=== PATIENT | male | born 1960 | race Caucasian/White ===

== ENCOUNTER 2024-04-14 09:42 | Outpatient (REF) | payer BC, SELFPAY ==
--- OUTSIDE RECORDS SUMMARY | 2024-04-14 10:13 | XMS_ITS | Encounter Summary ---
Author Organization [facility] [place] Address [address] [place] [address] Care Team Providers Care Senior Reservations Agent Name Role Phone Gera Castillo MD Primary Care Provider Reason for Visit * Reason Onset Date Comments medication question 04/12/2024 Medication Problem 04/12/2024 Encounter Details Date Type Department Care Team ([facility] Contact Info) Description 04/12/2024 Telephone Adult Medicine [facility] [address] [place] [address] Gera Castillo MD [address], [place] [phone] medication question; Medication Problem Social History Tobacco Use Types Packs/Day Years Used Date Smoking Tobacco: Never Smokeless Tobacco: Never Alcohol Use Standard Drinks/Week Comments Not Currently 0 (1 standard drink = 0.6 oz pur e alcohol) Housing Instability Answer Date Recorde d Are you worried that in the next 2 months you may not have stable housing? No 02/10/2024 Food Access & Nutrition Answer Date Rec orded Do you have access to a vari ety of food including fruits and vegetables? Yes 02/10/2024 Access to Healthcare Answer Date Record ed Within the last 3 months, ho w many times did you visit the emergency department for your medical care? 1 02/10/2024 Health Literacy Answer Date Recorded How often do you need to hav e someone help you when you read instructions, pamphlets, or other written material from your doctor or pharmacy? Never 02/10/2024 Caregiver: How often do you need to have someone help you when you read instructions, pamphlets, or other written material from your doctor or pharmacy? Not on file 02/10/2024 Financial Risk Answer Date Recorded How hard is it for you to pa y for the very basics like food, housing, medical care, and air conditioning / heating? Not very hard 02/10/2024 Transportation Answer Date Recorded Has the lack of transportati on kept you from meetings, work, or from getting things needed for daily living? No Has the lack of transportati on kept you from medical appointments or from getting medications? No 02/10/2024 Social Isolation Answer Date Recorded How often do you feel lonely or isolated from th ose around you? Never 02/10/2024 Food Risk Answer Date Recorded Within the past 12 months we worried whether our food would run out before we got money to buy more. Never true 02/10/2024 Within the past 12 months th e food we bought just didn't last and we didn't have money to get more. Never true 02/10/2024 Dependent Care Answer Date Recorded Do you need help finding or paying for care for your loved ones. For example, child care group leader or elderly care for an older adult? No 02/10/2024 Education Answer Date Recorded Do you think completing more education or training, like finishing a GED, going to college, or learning a trade, would be helpful for you? No 02/10/2024 Employment and Income Answer Date Recor ded During the last four weeks, have you been actively looking for work? No 02/10/2024 Living Situation Answer Date Recorded What is your living situation? 1 04/12/2023 Interpersonal Safety Answer Date Record ed Physical Abuse 01/19/2024 Verbal Abuse 01/19/2024 Sex and Gender Information Value Date Recorded Sex Assigned at Not on file Legal Sex Male 8:34 PM EST Gender Identity Not on file Sexual Orientation Not on file documented as of this encounter Progress Notes * Orin Hedrick MA - 04/14/2024 10:11 AM EST Please advise * Edyta Fagan - 04/12/2024 8:48 AM EST Medication Problem: What is the name of the medication patient is having a problem with?: Omeprazole, Amoxicillin, clarithromycin What is the problem?: Patient is unsure on how he should be taking these and has questions about the medications and would like a call back Who is calling about the problem? : The patient Is this a NEW medication?: yes How long has the patient been taking this medication? Who prescribed this medication for the patient? Gera Castillo Who is patients PCP?: Gera Castillo MD [facility]: [facility] / Plan: [facility] PPO / Product Type: *No Product type* / documented in this encounter Plan of Treatment Upcoming Encounters Date Type Department Care Team (Late st Contact Info) Description 10/04/2024 9:30 AM EDT Office Visit Adult Medicine [address] [phone] Gera Castillo MD [address] [place] [phone] documented as of this encounter Visit Diagnoses Not on filedocumented in this encounter Additional Health Concerns Infection Onset Date Last Indicated Resolved Time Influenza 03/21/2024 03/21/2024 documented as of this encounter Care Teams Senior Reservations Agent Relationship Specialty Start Date End Date Gera Castillo MD [address] [place] [id number] PCP - General 05/08/22 documented as of this encounter
--- OUTSIDE RECORDS SUMMARY | 2024-04-14 10:13 | XMS_ITS | Clinical Summary ---
Author Organization [facility] Address [address] [place] [address] Care Team Providers Care Shell Press Operator Name Role Phone Unavailable Primary Care Provider Unavailabl e Social History Tobacco Use Types Packs/Day Years Used Date Smoking Tobacco: Never Assessed Sex and Gender Information Value Date Recorded Sex Assigned at Not on file Legal Sex Male 6:41 PM EDT Gender Identity Not on file Sexual Orientation Not on file Plan of Treatment Health Maintenance Due Date Last Done Comments Hepatitis C Screening 1962 DTaP/Tdap/Td (1 - Tdap) 1980 Pneumococcal 50+ years (1 of 1 - PCV) 2012 Zoster (Shingrix) (1 of 2) 2012 COVID-19 Vaccine ( - 2023-2 5 season) 2023 Influenza (#1) 2023 RSV (1 - 1-dose 75+ series) 2037 HPV Vaccine Aged Out No longer eligi ble based on patient's age to complete this topic Hep A Aged Out No longer eligi ble based on patient's age to complete this topic Hep B Aged Out No longer eligi ble based on patient's age to complete this topic Hib Aged Out No longer eligi ble based on patient's age to complete this topic Meningococcal ACWY Aged Out No longer eligible based on patient's age to complete this topic Zoster (Zostavax) Discontinued
--- OUTSIDE RECORDS SUMMARY | 2024-04-14 10:13 | XMS_ITS | Encounter Summary ---
Author Organization [facility] Address [address] [place] [address] Care Team Providers Care Philosophy Lecturer Name Role Phone Gera Castillo MD Primary Care Provider Encounter Details Date Type Department Care Team (Late st Contact Info) Description 04/10/2024 Telephone Adult Medicine [facility] [address] [place] [address] Gera Castillo MD [address] [place] [address] Social History Tobacco Use Types Packs/Day Years [...] getting things needed for daily living? No 4 Has the lack of transportati on kept [...] care for your loved ones. For example, child's nurse or elderly care for an older adult? [...] on file documented as of this encounter Ordered Prescriptions Prescription Sig Dispense Quantity Refills Last Filled Start Date End Date omeprazole (PriLOSEC) [address] capsule Take 1 capsule (40 mg total) by mouth 1 (one) time each day for 14 days. Do not crush or chew. 14 each 04/10/2024 5 amoxicillin (AMOXIL) 500 mg capsule Take 2 capsules (1,000 mg total) by mouth every 12 (twelve) hours for 14 days. 56 each 04/10/2024 5 clarithromycin (BIAXIN) 500 mg tablet Take 1 tablet (500 mg total) by mouth 2 (two) times a day for 14 days. 28 each 04/10/2024 5 documented in this encounter Progress Notes * Gera Castillo MD - 04/10/2024 1:31 PM EST Labs discussed over the phone with the patient. Patient ordered test positive. Will treat with triple therapy for 14 days. Recheck H. pylori test for eradication confirmation. Mild hyperlipidemia noted. Will continue monitor for now. documented in this encounter Plan of Treatment Upcoming Encounters Date Type Department Care Team (Late st Contact Info) Description 10/04/2024 9:30 AM EDT Office Visit Adult Medicine [address] [phone] Gera Castillo MD [address] [place] [phone] Scheduled Orders Name Type Priority Associated Diagnoses Orde r Schedule Helicobacter pylori breath test Lab Routine Helicobacter pylori gastritis 1 Occurrences starting 04/10/2024 until 04/10/2025 documented as of this encounter Visit Diagnoses Diagnosis Helicobacter pylori gastritis- Primary documented in this encounter Additional Health Concerns Infection Onset Date Last Indicated Resolved Time Influenza 03/21/2024 03/21/2024 documented as of this encounter Care Teams Philosophy Lecturer Relationship Specialty Start Date End Date Gera Castillo MD [address] [place] [id number] PCP - General 05/08/22 documented as of this encounter
--- OUTSIDE RECORDS SUMMARY | 2024-04-14 10:13 | XMS_ITS | Encounter Summary ---
Author Organization [facility] Address [address] [place] [address] Care Team Providers Care Director Of Clinical Services Name Role Phone Gera Castillo MD Primary Care Provider Reason for Visit * Reason Comments Flu Symptoms Encounter Details Date Type Department Care Team ([facility] st Contact Info) Description 03/21/2024 1:30 PM EST Office Visit Adult Medicine [facility] [address] [place] [address] Patrick Walden PA [address] [place] [address] Influenza (Primary Dx); Acute URI; Cough, unspecified type Social History Tobacco Use Types Packs/Day Years Used Date Smoking Tobacco: Never Smokeless Tobacco: Never Tobacco Cessation:Counseling Given: Not Answered Alcohol Use Standard Drinks/Week Comments Not Currently [...] care for your loved ones. For example, children's service supervisor or elderly care for an older adult? [...] on file documented as of this encounter Last Filed Vital Signs Vital Sign Reading Time Taken Comments Blood Pressure 115/71 03/21/2024 1:29 PM EST Pulse 105 03/21/2024 1:29 PM EST Temperature 37.6 ??C (99.7 ??F) 03/21/2024 1:29 PM ES T Respiratory Rate 16 03/21/2024 1:29 PM EST Oxygen Saturation - - Inhaled Oxygen Concentration - - Weight 84 kg (185 lb 3.2 oz) 03/21/2024 1:29 PM EST Height 172.7 cm (5' 8 ) 03/21/2024 1:29 PM EST Body Mass Index 28.16 03/21/2024 1:29 PM EST documented in this encounter Ordered Prescriptions Prescription Sig Dispense Quantity Refills Last Filled Start Date End Date guaiFENesin-codein e (ROBITUSSIN-AC) 100-10 mg/5 mL syrup Take 5 mL by mouth every 8 (eight) hours if needed for cough for up to 5 days. Max Daily Amount: 15 mL 200 mL 03/21/2024 oseltamivir (TAMIFLU) 75 mg capsule Take 1 capsule (75 mg total) by mouth 2 (two) times a day for 5 days. 10 each 03/21/2024 5 documented in this encounter Progress Notes * JAYLYN Bingham - 03/21/2024 1:30 PM EST CHIEF COMPLAINT: Flu Symptoms IDENTIFIER: Reji Ellington is a 63 y.o. old male. HPI: This pleasant gentleman presents today complaining of some respiratory symptoms for a few days. Started back on Wednesday with a fever has been having bodyaches and chills since then also has a headachedoes complain of postnasal drip, nasal congestion, cough which is mostly dry denies shortness of breath. ROS: GENERAL: SEE HPI HEENT: See HPI NECK: See HPI RESPIRATORY: See HPI CARDIOVASCULAR: Negative for chest pain, leg swelling and palpitations PAST MEDICAL HISTORY: Patient Active Problem List Diagnosis Date Noted Non-seasonal allergic rhinitis 01/28/2024 Relative polycythemia 01/28/2024 Lumbar spondylosis 01/28/2024 Multiple acquired cysts of kidney 08/17/2023 External hemorrhoid 10/29/2021 Epididymal cyst 10/29/2021 Elevated hematocrit 07/15/2021 Glaucoma suspect of both eyes 07/05/2017 Nuclear sclerosis of both eyes 07/05/2017 Osteoarthritis of right shoulder 06/18/2017 Bilateral inguinal hernia without obstruction or gangrene 05/27/2017 Chronic back pain 11/11/2016 Essential hypertension 01/31/2015 Hyperlipidemia 07/24/2014 Diverticulitis of colon without hemorrhage 10/18/2013 Herpes genitalia 08/26/2011 Past Surgical History: Procedure Laterality Date COLONOSCOPY 2013 PROCEDURE: FL COLONOSCOPY FLX DX W/COLLJ SPEC WHEN PFRMD; COMMENT: Minimal diverticulosis HERNIA REPAIR 06/16/2017 PROCEDURE: LAPAROSCOPY, INGUINAL HERNIA REPAIR; COMMENT: bilateral with mesh HERNIA REPAIR 06/16/2017 PROCEDURE: REPAIR UMBILICAL HERNIA VASECTOMY 1991 PROCEDURE: HISTORICAL VASECTOMY SOCIAL HISTORY: Social History Tobacco Use Smoking status: Never Smokeless tobacco: Never Substance Use Topics Alcohol use: Not Currently FAMILY HISTORY: Family History Problem Relation Name Age of Onset Other (Other: healthy) Mother after fall 91 Coronary artery disease Father Cataracts Father Other (Other: arrythmia) Father Hypertension Brother Other (Other: diverticulitis) Son Blindness Neg Hx Glaucoma Neg Hx Macular degeneration Neg Hx Strabismus Neg Hx Family Status Relation Name Status Mother at age 91 Father at age 84 cad Brother Alive Son Alive Neg Hx (Not Specified) Brother Alive htn Brother Alive Brother Alive Brother Alive Sister Alive Sister Alive Sister Alive Sister Alive Sister Alive Sister Alive No partnership data on file MEDICATIONS DISCONTINUED/REORDERED: There are no discontinued medications. ACTIVE MEDICATIONS: Outpatient Medications Marked as Taking for the 03/21/24 encounter (Office Visit) with JAYLYN Bingham Medication Sig Dispense Refill ibuprofen (ADVIL,MOTRIN) 800 mg tablet Take 1 tablet (800 mg total) by mouth 3 (three) times a day if needed for mild pain (pain). 270 tablet 0 lisinopriL (PRINIVIL,ZESTRIL) 5 mg tablet Take 1 tablet (5 mg total) by mouth 1 (one) time each day. meclizine (ANTIVERT) 25 mg tablet Take 1 Tablet by mouth 3 times daily as needed (vertigo). ALLERGIES: No Known Allergies PHYSICAL EXAM: Visit Vitals BP 115/71 Pulse 105 Temp 37.6 ??C (99.7 ??F) (Temporal) Resp 16 Ht 1.727 m (68 ) Wt 84 kg (185 lb 3.2 oz) BMI 28.16 kg/m?? Smoking Status Never BSA 1.98 m?? General appearance: alert and oriented, in no acute distress Ears: normal TM's and external ear canals both ears Nose: Erythematous mucosa with purulent drainage Throat: Erythema no exudate Lungs: clear to auscultation bilaterally Heart: regular rate and rhythm, S1, S2 normal, no murmur, click, rub or gallop LABS/IMAGING: Rapid flu and covid Influenza A is positive IMPRESSION: 1. Influenza 2. Acute URI 3. Cough, unspecified type PLAN: 1. Patient with influenza infection we will treat with Tamiflu. Discussed adverse effects. Also prescribe some codeine cough medication for symptoms recommend rest and fluids. Follow-up if no improvement. Advised the patient to call me if any problems. Patient understands the plan. Patient is in agreement with the plan. * Linsey Walsh MA - 03/21/2024 1:30 PM EST Lab Results Component Value Date RAPFLUA Positive (A) 03/21/2024 RAPFLUB Negative 03/21/2024 Lab Results Component Value Date COVID19 Negative 03/21/2024 documented in this encounter Plan of Treatment Upcoming Encounters Date Type Department Care Team (Late st Contact Info) Description 10/04/2024 9:30 AM EDT Office Visit Adult Medicine [address] [phone] Gera Castillo MD [address] [place] [address] documented as of this encounter Procedures Procedure Name Priority Date/Time Associated Diagnosis Comments POC RAPID [id number], MOLECULAR Routine 03/21/2024 1:58 PM EST Acute URI Cough, unspecified type POC INFLUENZA A/B Routine 03/21/2024 1:5 0 PM EST Acute URI Cough, unspecified type documented in this encounter Results * Poc Rapid [id number], MOLECULAR (03/21/2024 1:58 PM EST) COVID-19/SARS- COV-2 Rapid POC Negative Negative Internal Control Pass Yes Yes Swab Nasopharyngeal structure / Unknown 03/21/2024 1:58 PM EST [facility] [place] POINT OF CARE TEST ENTER/ EDIT ORDERABLES Final Result * (ABNORMAL) POC Influenza A/B manually resulted (03/21/2024 1:50 PM EST) Pathologist [facility] Rapid Influenza A AGN POC Positive(A) Negative Rapid Influenza B AGN POC Negative Negative Internal Control Pass Yes Yes Swab 03/21/2024 1:50 PM EST [facility] Carissa DE LA O POINT OF CARE TEST ENTER/ EDIT ORDERABLES Final Result documented in this encounter Visit Diagnoses Diagnosis Influenza- Primary Influenza with other respiratory manifestations Acute URI Acute upper respiratory infections of unspecified site Cough, unspecified type documented in this encounter Additional Health Concerns Infection Onset Date Last Indicated Resolved Time Influenza 03/21/2024 03/21/2024 documented as of this encounter Care Teams Director Of Clinical Services Relationship Specialty Start Date End Date Gera Castillo MD [address] [place] [address] PCP - General 05/08/22 documented as of this encounter
--- OUTSIDE RECORDS SUMMARY | 2024-04-14 10:13 | XMS_ITS | Clinical Summary ---
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 4 Active lisinopriL (PRINIVIL,ZEST RIL) 5 mg tablet TAKE 1 TABLET BY MOUTH EVERY DAY 90 tablet 1 5 Active clarithromycin (BIAXIN) 500 mg tablet Take 1 tablet (500 mg total) by mouth 2 (two) times a day for 14 days. 28 each 5 025 Active amoxicillin (AMOXIL) 500 mg capsule Take 2 capsules (1,000 mg total) by mouth every 12 (twelve) hours for 14 days. 56 each 5 025 Active omeprazole (PriLOSEC) [address] capsule Take 1 capsule (40 mg total) by mouth 1 (one) time each day for 14 days. Do not crush or chew. 14 each 5 025 Active lisinopriL (PRINIVIL,ZEST RIL) 5 mg tablet Take 1 tablet (5 mg total) by mouth 1 (one) time each day. 4 025 Discontinued ibuprofen (ADVIL,MOTRIN) 800 mg tablet Take 1 tablet (800 mg total) by mouth 3 (three) times a day if needed for mild pain (pain). 270 tablet 4 025 Discontinued cyclobenzaprin e (FLEXERIL) 10 mg tablet Take 1 tablet (10 mg total) by mouth 3 (three) times a day if needed for muscle spasms. 270 tablet 4 025 Discontinued sucralfate (Carafate) 1 gram tablet Take 1 tablet (1 g total) by mouth 4 (four) times a day. 56 each 4 025 Discontinued pantoprazole (PROTONIX) 40 mg EC tablet Take 1 tablet (40 mg total) by mouth 1 (one) time each day before breakfast. Do not crush, chew, or split. 14 each 4 025 Discontinued oseltamivir (TAMIFLU) 75 mg capsule Take 1 capsule (75 mg total) by mouth 2 (two) times a day for 5 days. 10 each 5 025 guaiFENesin-co deine (ROBITUSSIN-AC ) 100-10 mg/5 mL syrup Take 5 mL by mouth every 8 (eight) hours if needed for cough for up to 5 days. Max Daily Amount: 15 mL 200 mL 5 025 Active Problems Problem Noted Date Diagnosed Date Non-seasonal allergic rhinitis 01/28/2024 Relative polycythemia 01/28/2024 Lumbar spondylosis 01/28/2024 Multiple acquired cysts of kidney 08/17/2023 External hemorrhoid 10/29/2021 Epididymal cyst 10/29/2021 Elevated hematocrit 07/15/2021 Overview (01/28/2024): Relative polycythemia. Negative Willie 2 testing. Resolved in 2022, continue serial cbc. Should be on aspirin if it recurs. Glaucoma suspect of both eyes 07/05/2017 Nuclear sclerosis of both eyes 07/05/2017 Osteoarthritis of right shoulder 06/18/2017 Bilateral inguinal hernia without obstruction or gangrene 05/27/2017 Chronic back pain 11/11/2016 Essential hypertension 01/31/2015 Hyperlipidemia 07/24/2014 Diverticulitis of colon without hemorrhage 10/18 Overview (12/08/2023): Incidental finding at colonoscopy 10/18/2013. Herpes genitalia 08/26/2011 Encounters Date Type Department Care Team Description 04/12/2024 Telephone Adult [address] [phone] Gera Castillo MD medication question; Medication Problem 04/10/[address] [phone] Gera Castillo MD 04/06/2024 9:45 AM EST Office Visit [address] [phone] Gera Castillo MD Other hyperlipidemia (Primary Dx); Essential hypertension; Relative polycythemia; Postprandial epigastric pain; Bilateral hearing loss, unspecified hearing loss type 03/29/[address] [phone] Gera Castillo MD Abdominal Injury 03/21/2024 1:30 PM EST Office Visit [address] [phone] Patrick Walden PA Influenza (Primary Dx); Acute URI; Cough, unspecified type 03/21/2024 Nurse Triage Adult [address] [phone] Bea Lebron [place] triage (Body aches/headaches) 02/10/2024 10:30 AM EST Office Visit [address] [phone] Billie Parham PA Epigastric pain (Primary Dx) 02/10/2024 Nurse Triage Adult [address] [phone] Gera Castillo MD Abdominal Pain 01/28/2024 3:05 PM EST - 01/28/2024 11:59 PM EST Hospital Encounter [address] [phone] Lumbar spondylosis; Acute on chronic low back pain Discharge Disposition: Home or Self Care 01/28/2024 2:30 PM EST Office Visit Adult [address] [phone] Gera Castillo MD Essential hypertension (Primary Dx); Other hyperlipidemia; Screening for prostate cancer; Relative polycythemia; Non-seasonal allergic rhinitis due to other allergic trigger; Multiple acquired cysts of kidney; Lumbar spondylosis; Acute on chronic low back pain 01/28/2024 Nurse Triage [address] [phone] Gera Castillo MD Back Pain (For the past 3 months) 01/28/2024 Telephone Adult [address] [phone] Gera Castillo MD Request Labs (X-ray for lower back ) 01/19/2024 8:55 AM EST Anesthesia Event [facility] Endoscopy [address] [place] [phone] Nick Saucedo MD Guerin, Erik R, CRNA 01/19/2024 8:07 AM EST - 01/19/2024 11:59 PM EST Hospital Encounter [facility] Endoscopy [address] [place] [phone] Manuelito Matos MD Gomes, Sheldon B, MD Screen for colon cancer Discharge Disposition: Home or Self Care from Last 3 Months Immunizations Name Administration Dates Next Due Pfizer SARS-CoV-2 COVID-19, mRNA, LNP-S, preservative free 02/15/2021 Td Tetanus diptheria (Tdvax) 7yo and older 02/09 Tdap Tetanus diptheria acell ular pertussis (Boostrix; Adacel) 7yo and older 01/28/2009 Surgical History Surgery Date Site/Laterality Comments VASECTOMY 1992 PROCEDURE: HISTORICAL VASECTOMY COLONOSCOPY 2013 PROCEDURE: CT COLONOSCOPY FLX DX W/COLLJ SPEC WHEN PFRMD; COMMENT: Minimal diverticulosis HERNIA REPAIR 06/16/2017 PROCEDURE: LAPAROSCOPY, INGUINAL HERNIA REPAIR; COMMENT: bilateral with mesh HERNIA REPAIR 06/16/2017 PROCEDURE: REPAIR UMBILICAL HERNIA Medical History Medical History Date Comments Onychomycosis DX:Onychomycosis Diverticulosis of colon (wit hout mention of hemorrhage) 10/18/2013 DX:Diverticulosis of colon ( without mention of hemorrhage); COMMENT: Incidental finding at colonoscopy 10/18/2013. Herpes genitalia 08/26/2011 DX:Herpes genit yasmeen Diverticulitis of colon with out hemorrhage 10/18/2013 DX:Diverticulitis of colon w ithout hemorrhage; COMMENT: Incidental finding at colonoscopy 10/18/2013. Hyperlipidemia 07/24/2014 DX:Hyperlipidemi a Essential hypertension 01/31/2015 DX:Essent ial hypertension Family History Medical History Relation Name Comments Hypertension Brother 1 Cataracts Father Coronary artery disease Father Other: arrythmia Father Other: healthy Mother after fa ll 91 Other: diverticulitis Son Blindness Neg Hx Glaucoma Neg Hx Macular degeneration Neg Hx Strabismus Neg Hx Relation Name Status Comments Brother 1 Alive Brother 2 Alive htn Brother 3 Alive Brother 4 Alive Brother 5 Alive Father (Age 84) cad Mother (Age 91) Sister 1 Alive Sister 2 Alive Sister 3 Alive Sister 4 Alive Sister 5 Alive Sister 6 Alive Son Alive Social History Tobacco Use Types Packs/Day Years [...] for your loved ones. For example, child support investigator or elderly care for an older adult? [...] on file Sexual Orientation Not on file Obstetrics History Last Filed Vital Signs Vital Sign Reading Time Taken Comments Blood Pressure 122/68 04/06/2024 9:32 AM EST Pulse 89 04/06/2024 9:32 AM EST Temperature 36.3 ??C (97.4 ??F) 04/06/2024 9:32 AM ES T Respiratory Rate 21 04/06/2024 9:32 AM EST Oxygen Saturation 99% 01/28/2024 2:19 PM EST Inhaled Oxygen Concentration - - Weight 82.5 kg (181 lb 12.8 oz) 04/06/2024 9:32 AM EST Height 172.7 cm (5' 8 ) 04/06/2024 9:32 AM EST Body Mass Index 27.64 04/06/2024 9:32 AM EST Plan of Treatment Upcoming Encounters Date Type Department Care Team (Late st Contact Info) Description 10/04/2024 9:30 AM EDT Office Visit Adult Medicine [facility] [address] [place] [phone] Gera Castillo MD [address] [place] [address] Health Maintenance Due Date Last Done Comments Pneumococcal Vaccine: 50+ Years (1 of 1 - PCV) 2012 Zoster Vaccines (1 of 2) 2012 HIV Screening 02/08/2022 COVID-19 Vaccine (4 - 2023-2 5 season) 2023 02/15/2021, 06/27/2020, 05/30/2020 Depression Screening 04/28/2024 04/28/2023 Influenza Vaccine (#1) 2024 Postp oned from 10/31/2023 (Patient Refused) Social Influencers of Health Screening 02/09/2025 02/10/2024 Hypertension/CHF/CAD Annual BMP Blood Test 04/07/2025 04/07/2024, 01/31/2024, 02/01/2023 Cholesterol Screening (Lipid Panel) 04/07/2029 04/07/2024, 01/31/2024, 02/01/2023 DTaP,Tdap,and Td Vaccines (3 - Td or Tdap) 02/10/2032 02/09/2022, 01/28/2009 Colorectal Cancer Screening: Colonoscopy 01/18/2034 01/19/2024 RSV Immunization Patients 60 + Years Old (1 - 1-dose 75+ series) 2037 Hepatitis C Screening Completed 01/14/2023 HIB Vaccines Aged Out No longer eligi ble based on patient's age to complete this topic HPV Vaccines Aged Out No longer eligi ble based on patient's age to complete this topic Hepatitis A Vaccines Aged Out No long er eligible based on patient's age to complete this topic Hepatitis B Vaccines Aged Out No long er eligible based on patient's age to complete this topic IPV Vaccines Aged Out No longer eligi ble based on patient's age to complete this topic MMR Vaccines Aged Out No longer eligi ble based on patient's age to complete this topic Meningococcal ACWY Vaccine Aged Out N o longer eligible based on patient's age to complete this topic Meningococcal B Vacine Aged Out No lo nger eligible based on patient's age to complete this topic Pneumococcal Vaccine: Pediatrics (0 to 5 Years) and At-Risk Patients (6 to 64 Years) Aged Out No longer eligible b ased on patient's age to complete this topic RSV Immunization Patients Under 20 months Aged Out No longer eligible b ased on patient's age to complete this topic Varicella Vaccines Aged Out No longer eligible based on patient's age to complete this topic Procedures Procedure Name Priority Date/Time Associated Diagnosis Comments CBC WITH AUTO DIFFERENTIAL Routine 04/07/2024 9:28 AM EST Essential hypertension CBC AND DIFFERENTIAL Routine 04/07/2024 9:28 AM EST Essential hypertension LIPID PANEL WITH REFLEX TO DIRECT LDL Routine 04/07/2024 9:28 AM EST Other hyperlipidemia HELICOBACTER PYLORI BREATH TEST Routine 04/07/2024 9:28 AM EST Postprandial epigastric pain BASIC METABOLIC PANEL Routine 04/07/2024 9:28 AM EST Essential hypertension POC RAPID [id number], MOLECULAR Routine 03/21/2024 1:58 PM EST Acute URI Cough, unspecified type POC INFLUENZA A/B Routine 03/21/2024 1:5 0 PM EST Acute URI Cough, unspecified type CBC WITH AUTO DIFFERENTIAL Routine 01/31/2024 8:56 AM EST Other hyperlipidemia Relative polycythemia CBC AND DIFFERENTIAL Routine 01/31/2024 8:56 AM EST Other hyperlipidemia Relative polycythemia COMPREHENSIVE METABOLIC PANEL Routine 01/31/2024 8:56 AM EST Essential hypertension PROSTATE SPECIFIC ANTIGEN SCREEN Routine 01/31/2024 8:56 AM EST Screening for prostate cancer LIPID PANEL WITH REFLEX TO DIRECT LDL Routine 01/31/2024 8:56 AM EST Other hyperlipidemia XR LUMBAR SPINE 4+ VIEWS Routine 01/28/2024 3:22 PM EST Lumbar spondylosis Acute on chronic low back pain COLONOSCOPY Routine 01/19/2024 9:15 AM EST Screen for colon cancer DEPRESSION SCREENING Routine 04/28/2023 HEPATITIS C SCREENING Routine 01/14/2023 from Last 3 Months or Most Recently Relevant to Health Maintenance Results * (ABNORMAL) Lipid panel with reflex to direct LDL (04/07/2024 9:28 AM EST) Only the most recent of2 resultswithin the time period is included. Cholesterol 163 0 - 200 mg/dL LAB CHEMISTRY METHOD 04/07/2024 12:20 PM [facility] Triglycerides 89 0 - 150 mg/dL LAB CHEMISTRY METHOD 04/07/2024 12:20 PM EST [facility] HDL 34(L) >=40 mg/dL LAB CHEMISTRY METHOD 04/07/2024 12:20 PM [facility] LDL Calculated 111(H) 0 - 100 mg/dL LAB CHEMISTRY METHOD 04/07/2024 12:20 PM [facility] VLDL Cholesterol [employer] 17.8 mg/dL LAB CHEMISTRY METHOD 04/07/2024 12:20 PM [facility] Non HDL Chol. (LDL+VLDL) 129 <145 mg/dL LAB CHEMISTRY METHOD 04/07/2024 12:20 PM [facility] Chol/HDL Ratio 4.8(H) 0.0 - 4.4 LAB CHEMISTRY METHOD 04/07/2024 12:20 PM [facility] Blood Venous blood specimen / Unknown Venipuncture / Unknown 04/07/2024 9:28 AM EST 04/07/2024 9:28 AM EST us Gera Castillo MD LAB BLOOD ORDERABLES F inal Result [facility] [address] [place] [address], [place] [phone] * CBC auto differential (04/07/2024 9:28 AM EST) Only the most recent of2 resultswithin the time period is included. WBC 6.6 4.8 - 10.8 K/mcL LAB HEMETOLOGY METHOD 04/07/2024 10:04 AM [facility] RBC 5.50 4.50 - 5.50 M/mcL LAB HEMETOLOGY METHOD 04/07/2024 10:04 AM [facility] Hemoglobin 16.6 13.5 - 17.5 g/dL LAB HEMETOLOGY METHOD 04/07/2024 10:04 AM [facility] Hematocrit 49.5 42.0 - 54.0 % LAB HEMETOLOGY METHOD 04/07/2024 10:04 AM [facility] MCV 89.5 79.0 - 98.0 FL LAB HEMETOLOGY METHOD 04/07/2024 10:04 AM [facility] MCH 30.0 27.0 - 32.0 pcg LAB HEMETOLOGY METHOD 04/07/2024 10:04 AM [facility] MCHC 33.5 32.0 - 37.0 g/dL LAB HEMETOLOGY METHOD 04/07/2024 10:04 AM [facility] RDW 12.0 11.0 - 15.0 % LAB HEMETOLOGY METHOD 04/07/2024 10:04 AM [facility] Platelets 260 130 - 400 K/mcL LAB HEMETOLOGY METHOD 04/07/2024 10:04 AM [facility] MPV 10.9 7.0 - 11.0 FL LAB HEMETOLOGY METHOD 04/07/2024 10:04 AM [facility] NRBC 0.0 <1.0 % LAB HEMETOLOGY METHOD 04/07/2024 10:04 AM [facility] NRBC Absolute 0.00 <0.10 K/mcL LAB HEMETOLOGY METHOD 04/07/2024 10:04 AM [facility] Neutrophils Relative 64.6 % LAB HEMETOLOGY METHOD 04/07/2024 10:04 AM [facility] Lymphocytes Relative 24.5 % LAB HEMETOLOGY METHOD 04/07/2024 10:04 AM [facility] Monocytes Relative 8.2 % LAB HEMETOLOGY METHOD 04/07/2024 10:04 AM [facility] Eosinophils Relative 2.0 % LAB HEMETOLOGY METHOD 04/07/2024 10:04 AM [facility] Basophils Relative 0.2 % LAB HEMETOLOGY METHOD 04/07/2024 10:04 AM [facility] Immature Granulocytes Relative 0.5 % LAB HEMETOLOGY METHOD 04/07/2024 10:04 AM [facility] Neutrophils Absolute 4.24 1.50 - 7.00 K/mcL LAB HEMETOLOGY METHOD 04/07/2024 10:04 AM [facility] Lymphocytes Absolute 1.61 1.00 - 5.00 K/mcL LAB HEMETOLOGY METHOD 04/07/2024 10:04 AM EST [facility] Monocytes Absolute 0.54 0.20 - 1.00 K/mcL LAB HEMETOLOGY METHOD 04/07/2024 10:04 AM [facility] Eosinophils Absolute 0.13 0.00 - 0.50 K/mcL LAB HEMETOLOGY METHOD 04/07/2024 10:04 AM [facility] Basophils Absolute 0.01 0.00 - 0.20 K/mcL LAB HEMETOLOGY METHOD 04/07/2024 10:04 AM [facility] Immature Granulocytes Absolute 0.03 0.00 - 0.03 K/mcL LAB HEMETOLOGY METHOD 04/07/2024 10:04 AM [facility] Blood Venous blood specimen / Unknown Venipuncture / Unknown 04/07/2024 9:28 AM EST 04/07/2024 9:28 AM EST Gera Castillo MD LAB BLOOD ORDERABLES F inal Result [facility] [address] [place] [address], [place] [phone] * (ABNORMAL) Helicobacter pylori breath test (04/07/2024 9:28 AM EST) H Pylori Breath Test Positive( A) Negative LAB CHEMISTRY METHOD 04/07/2024 12:26 PM EST [facility] Breath Oral cavity structure / Unknown Non-blood Collection / Unknown 04/07/2024 9:28 AM EST 04/07/2024 9:28 AM EST us Gera Castillo MD LAB BODY FLUIDS AND ST OOLS ORDERABLES Final Result Performing Organization Address City/[facility]/ZIP Co de Phone Number [facility] [address] [place] [address], [place] [phone] * Basic metabolic panel (04/07/2024 9:28 AM EST) Sodium 138 133 - 145 mmol/L LAB CHEMISTRY METHOD 04/07/2024 12:18 PM [facility] Potassium 4.1 3.5 - 5.5 mmol/L LAB CHEMISTRY METHOD 04/07/2024 12:18 PM [facility] Chloride 106 96 - 110 mmol/L LAB CHEMISTRY METHOD 04/07/2024 12:18 PM [facility] CO2 28 21 - 32 mmol/L LAB CHEMISTRY METHOD 04/07/2024 12:18 PM [facility] Anion Gap 4 3 - 11 LAB CHEMISTRY METHOD 04/07/2024 12:18 PM [facility] Glucose 99 70 - 100 mg/dL LAB CHEMISTRY METHOD 04/07/2024 12:18 PM [facility] BUN 16 5 - 25 mg/dL LAB CHEMISTRY METHOD 04/07/2024 12:18 PM [facility] Creatinine 0.95 0.70 - 1.30 mg/dL LAB CHEMISTRY METHOD 04/07/2024 12:18 PM [facility] eGFR 91 >=60 mL/min/1. 73m2 LAB CHEMISTRY METHOD 04/07/2024 12:18 PM [facility] Comment:Calculation based on the??Chronic Kidney Disease Epidemiology Collaboration (CKD-EPI) equation refit??without adjustment for race. BUN/Creatinine Ratio 16.8 LAB CHEMISTRY METHOD 04/07/2024 12:18 PM [facility] Calcium 9.4 8.5 - 10.5 mg/dL LAB CHEMISTRY METHOD 04/07/2024 12:18 PM [facility] Blood Venous blood specimen / Unknown Venipuncture / Unknown 04/07/2024 9:28 AM EST 04/07/2024 9:28 AM EST us Gera Castillo MD LAB BLOOD ORDERABLES F inal Result Performing Organization Address City/[facility]/ZIP Co de Phone Number [facility] [address] [place] [address], [place] [phone] * Poc Rapid [id number], MOLECULAR (03/21/2024 1:58 PM EST) [facility] COVID-19/SARS- COV-2 Rapid POC Negative Negative Internal Control Pass Yes Yes Swab Nasopharyngeal structure / Unknown 03/21/2024 1:58 PM EST Patrick DE LA O POINT OF CARE TEST ENTER/ EDIT ORDERABLES Final Result * (ABNORMAL) POC Influenza A/B manually resulted (03/21/2024 1:50 PM EST) [facility] Rapid Influenza A AGN POC Positive(A) Negative Rapid Influenza B AGN POC Negative Negative Internal Control Pass Yes Yes Swab 03/21/2024 1:50 PM EST Patrick DE LA O POINT OF CARE TEST ENTER/ EDIT ORDERABLES Final Result * Prostate specific antigen screen (01/31/2024 8:56 AM EST) [facility] PSA 1.75 0.00 - 4.00 ng/mL LAB CHEMISTRY METHOD 01/31/2024 1:47 PM EST [facility] Blood Venous blood specimen / Unknown Venipuncture / Unknown 01/31/2024 8:56 AM EST 01/31/2024 8:56 AM EST Narrative [facility] - 01/31/2024 1:47 PM EST The Siemens Advia Centaur Chemiluminescent Immunoassay is used. Results obtained with different assay methods or kits cannot be used interchangeably. Results cannot be interpreted as absolute evidence of the presence or absence of malignant disease. us Gera Castillo MD LAB BLOOD ORDERABLES F inal Result [facility] [address] [place] [address], * Comprehensive metabolic panel (01/31/2024 8:56 AM EST) Sodium 141 133 - 145 mmol/L LAB CHEMISTRY METHOD 01/31/2024 1:46 PM EST [facility] Potassium 4.2 3.5 - 5.5 mmol/L LAB CHEMISTRY METHOD 01/31/2024 1:46 PM EST [facility] Chloride 107 96 - 110 mmol/L LAB CHEMISTRY METHOD 01/31/2024 1:46 PM [facility] CO2 28 21 - 32 mmol/L LAB CHEMISTRY METHOD 01/31/2024 1:46 PM [facility] Anion Gap 6 3 - 11 LAB CHEMISTRY METHOD 01/31/2024 1:46 PM [facility] Glucose 96 70 - 100 mg/dL LAB CHEMISTRY METHOD 01/31/2024 1:46 PM [facility] BUN 18 5 - 25 mg/dL LAB CHEMISTRY METHOD 01/31/2024 1:46 PM [facility] Creatinine 1.01 0.70 - 1.30 mg/dL LAB CHEMISTRY METHOD 01/31/2024 1:46 PM [facility] eGFR 85 >=60 mL/min/1. 73m2 LAB CHEMISTRY METHOD 01/31/2024 1:46 PM [facility] Comment:Calculation based on the??Chronic Kidney Disease Epidemiology Collaboration (CKD-EPI) equation refit??without adjustment for race. BUN/Creatinine Ratio 17.8 LAB CHEMISTRY METHOD 01/31/2024 1:46 PM [facility] Calcium 9.5 8.5 - 10.5 mg/dL LAB CHEMISTRY METHOD 01/31/2024 1:46 PM [facility] AST (SGOT) 26 10 - 42 unit/L LAB CHEMISTRY METHOD 01/31/2024 1:46 PM EST [facility] ALT (SGPT) 41 10 - 60 unit/L LAB CHEMISTRY METHOD 01/31/2024 1:46 PM EST [facility] Alkaline Phosphatase 76 42 - 121 unit/L LAB CHEMISTRY METHOD 01/31/2024 1:46 PM [facility] Total Protein 7.0 6.0 - 8.0 g/dL LAB CHEMISTRY METHOD 01/31/2024 1:46 PM EST [facility] Albumin 4.3 3.2 - 5.0 g/dL LAB CHEMISTRY METHOD 01/31/2024 1:46 PM [facility] Total Bilirubin 0.5 0.0 - 1.4 mg/dL LAB CHEMISTRY METHOD 01/31/2024 1:46 PM [facility] Blood Venous blood specimen / Unknown Venipuncture / Unknown 01/31/2024 8:56 AM EST 01/31/2024 8:56 AM EST us Gera Castillo MD LAB BLOOD ORDERABLES F inal Result [facility] [address] [place] [address], * XR Lumbar Spine 4+ Views (01/28/2024 3:22 PM EST) Anatomical Region Laterality Modality Spine, L-spine Radiographic Saba ging 01/28/2024 4:35 PM EST Impressions 01/28/2024 4:37 PM EST No acute fracture or dislocation of the lumbar spine. -------- FINAL REPORT -------- Dictated By: Heather Dietz Dictated Date: 01/28/2024 16:35 ET Assigned Physician: Heather Dietz Reviewed and Electronically Signed By: Heather Dietz Signed Date: 01/28/2024 16:37 ET Workstation ID: [id number] Transcribed By: Self Edit Transcribed Date: 01/28/2024 16:35 ET Narrative 01/28/2024 4:37 PM EST HISTORY: acute on chronic low back pain TECHNIQUE: 4 views of the lumbar spine COMPARISON: Lumbar spine radiograph from 05/06/2015 FINDINGS: Vertebral body height is preserved. ??Decreased disc height at L5-S1 with endplate sclerosis. ??Small anterior osteophytes are present at the lower lumbar spine. ??No acute fracture or dislocation is seen. ??The spinal alignment is well maintained without evidence of spondylolisthesis. ??Mild neuroforaminal stenosis at multiple levels. ??Large amount stool throughout the colon. ??The sacroiliac joints are unremarkable. ??Hernia mesh which are overlying the pelvis. Procedure Note Heather Dietz MD - 01/28/2024 HISTORY: acute on chronic low back pain TECHNIQUE: 4 views of the lumbar spine COMPARISON: Lumbar spine radiograph from 05/06/2015 FINDINGS: Vertebral body height is preserved. Decreased disc height at L5-S1 withendplate sclerosis. Small anterior osteophytes are present at the lowerlumbar spine. No acute fracture or dislocation is seen. The spinalalignment is well maintained without evidence of spondylolisthesis. Mildneuroforaminal stenosis at multiple levels. Large amount stool throughoutthe colon. The sacroiliac joints are unremarkable. Hernia mesh which areoverlying the pelvis. IMPRESSION: No acute fracture or dislocation of the lumbar spine. -------- FINAL REPORT -------- Dictated By: Heather Dietz Dictated Date: 01/28/2024 16:35 ET Assigned Physician: Heather Dietz Reviewed and Electronically Signed By: Heather Dietz Signed Date: 01/28/2024 16:37 ET Workstation ID: [id number] Transcribed By: Self Edit Transcribed Date: 01/28/2024 16:35 ET us Gera Castillo MD IMG XR PROCEDURES Faiza l Result * COLONOSCOPY Anesthesia - MAC; SP ENDOSCOPY (01/19/2024 9:15 AM EST) Anatomical Region Laterality Modality Other 01/19/2024 8:55 AM EST Impressions 01/19/2024 9:16 AM EST - Internal hemorrhoids. ? - Diverticulosis in the sigmoid colon. ? - No specimens collected. Recommendation: ?- Use fiber, for example Citrucel, Fibercon, Konsyl or ? Metamucil. ? - Repeat colonoscopy in 10 years for screening ? purposes. Narrative 01/19/2024 9:16 AM EST [facility] GI Patient Name: Reji Ellington Procedure Date: 01/19/2024 8:55 AM Date of : 1960 Age: 63 Gender: Male Note Status: Finalized Attending MD: Manuelito Matos MD, Procedure Date No Time: 01/19/2024 Procedure: ? Colonoscopy Indications: ? Screening for colorectal malignant neoplasm Providers: ? Manuelito Matos MD Referring MD: ?Manuelito Matos MD Medicines: ? Propofol per Anesthesia Complications: ? No immediate complications. Estimated Blood Loss: ? Estimated blood loss: none. Procedure: ? Pre-Anesthesia Assessment: ? - ASA Grade Assessment: II - A patient with mild ? systemic disease. ? After I obtained informed consent, the scope was ? passed under direct vision. Throughout the procedure, ? the patient's blood pressure, pulse, and oxygen ? saturations were monitored continuously.The ? Colonoscope was introduced through the anus and ? advanced to the cecum, identified by appendiceal ? orifice and ileocecal valve. The colonoscopy was ? performed without difficulty. The patient tolerated ? the procedure well. The quality of the bowel ? preparation was good. Findings: ?The perianal and digital rectal examinations were ? normal. ? Internal hemorrhoids were found during endoscopy. The ? hemorrhoids were Grade I (internal hemorrhoids that do ? not prolapse). ? A few diverticula were found in the sigmoid colon. Procedure Code(s): ? --- Professional --- ? G0121, Colorectal cancer screening; colonoscopy on ? individual not meeting criteria for high risk Diagnosis Code(s): ? --- Professional --- ? Z12.11, Encounter for screening for malignant neoplasm ? of colon ? K64.0, First degree hemorrhoids ? K57.30, Diverticulosis of large intestine without ? perforation or abscess without bleeding CPT copyright 2020 [employer] [employer]. All rights reserved. The codes documented in this report are preliminary and upon call center representative review may be revised to meet current compliance requirements. Manuelito Matos MD 01/19/2024 9:16:45 AM This report has been signed electronically.Manuelito Matos MD Number of Addenda: 0 Note Initiated On: 01/19/2024 8:55 AM Scope In: Scope Out: ? Endoscopy Department at [facility] - [address] [place] [address], ? [place] [address] Procedure Note Manuelito Matos MD - 01/19/2024 [facility] GI Patient Name: Reji Ellington Procedure Date: 01/19/2024 8:55 AM Date of : 1960 Age: 63 Gender: Male Note Status: Finalized Attending MD: Manuelito Matos MD, Procedure Date No Time: 01/19/2024 Procedure: Colonoscopy Indications: Screening for colorectal malignant neoplasm Providers: Manuelito Matos MD Referring MD: Manuelito Matos MD Medicines: Propofol per Anesthesia Complications: No immediate complications. Estimated Blood Loss: Estimated blood loss: none. Procedure: Pre-Anesthesia Assessment: - ASA Grade Assessment: II - A patient with mild systemic disease. After I obtained informed consent, the scope was passed under direct vision. Throughout theprocedure, the patient's blood pressure, pulse, and oxygen saturations were monitored continuously.The Colonoscope was introduced through the anus and advanced to the cecum, identified by appendiceal orifice and ileocecal valve. The colonoscopy was performed without difficulty. The patient tolerated the procedure well. The quality of the bowel preparation was good. Findings: The perianal and digital rectal examinations were normal. Internal hemorrhoids were found during endoscopy.The hemorrhoids were Grade I (internal hemorrhoids thatdo not prolapse). A few diverticula were found in the sigmoidcolon. Procedure Code(s): --- Professional --- G0121, Colorectal cancer screening; colonoscopy on individual not meeting criteria for high risk Diagnosis Code(s): --- Professional --- Z12.11, Encounter for screening for malignantneoplasm of colon K64.0, First degree hemorrhoids K57.30, Diverticulosis of large intestine without perforation or abscess without bleeding CPT copyright 2020 [employer] [place] [employer]. All rights reserved. The codes documented in this report are preliminary and upon call center representative reviewmay be revised to meet current compliance requirements. Manuelito Matos MD 01/19/2024 9:16:45 AM This report has been signed electronically.Manuelito Matos MD Number of Addenda: 0 Note Initiated On: 01/19/2024 8:55 AM Scope In: Scope Out: Endoscopy Department at [facility] - [address] [place] [id number] IMPRESSION: - Internal hemorrhoids. - Diverticulosis in the sigmoid colon. - No specimens collected. Recommendation: - Use fiber, for example Citrucel, Fibercon, Konsylor Metamucil. - Repeat colonoscopy in 10 years for screening purposes. Manuelito Matos MD GI~PROCEDURE ORDERABLES Final Re sult * Depression Screening (04/28/2023) Depression Screening abstracted Historical Provider HEALTH MAINTENANCE Final Result * Hepatitis C Screening (01/14/2023) Pathologist [facility] Hepatitis C Screening abstracted Historical Provider HEALTH MAINTENANCE Final Result from Last 3 Months or Most Recently Relevant to Health Maintenance Additional Health Concerns Infection Onset Date Last Indicated Influenza 03/21/2024 03/21/2024 Insurance Care Teams Cable Worker Helper Relationship Specialty Start Date End Date Gera Castillo MD [address] [place] [address] PCP - General 05/08/22
--- OUTSIDE RECORDS SUMMARY | 2024-04-14 10:13 | XMS_ITS | Encounter Summary ---
Author Organization [facility] Address [address] [place] [address] Care Team Providers Care Roustabout Pusher Name Role Phone Gera Castillo MD Primary Care Provider Reason for Visit * Reason Onset Date Comments Abdominal Injury 03/29/2024 Encounter Details Date Type Department Care Team ([facility] st Contact Info) Description 03/29/2024 Telephone Adult Medicine [facility] [address] [place] [address] Gera Castillo MD [address] [place] [address] Abdominal Injury Social History Tobacco Use Types Packs/Day Years [...] for your loved ones. For example, child therapist or elderly care for an older adult? [...] as of this encounter Progress Notes * Bianca Gonzalez RN - 03/29/2024 9:21 AM EST Called to the pt the call was actually for his . This is in the wrong chart * Carie Paris - 03/29/2024 9:05 AM EST Patient call requires triage: Symptoms patient is presenting: PATIENTS SURGERY SIGHT ON STOMACH IS FEELING INFLAMED AND BURNING. AREA IS VERY HARD. PATIENT HAS BAD COUGH, EVERY TIME SHE COUGHS IT RAMOS. How long has patient had these symptoms?: 03/28/2024 For ALL patients calling to schedule any appointment (routine, sick visit, follow up, consult, etc.) in the outpatient setting please ask the following questions: Do you have fever of higher than 101, sore throat with difficulty swallowing or severe shortness ofbreath? no If YES to any of these above symptoms, send a message to triage and do not book. Red dot. If no, an audio or video visit should be booked. Have you had close contact with someone with Coronavirus in the last 14 days? no Have you traveled abroad? no Have you traveled recently to another state outside of [place], [place], [place], [place], [place], [place]? no o If yes, did you quarantine for 14 days or have a negative covid test? no If yes to any of the above, patient is not to be scheduled in office until after 14 day quarantine or negative covid test. If pain or injury related was it due to an accident at work or from a motor vehicle accident? If yes, date of accident/Injury: No If yes, gather 3rd constitution party insurance information Third Republican Information: not applicable PCP: Gera Castillo MD Payor: [facility] / Plan: [facility] PPO / Product Type: *No Product type* / documented in this encounter Plan of Treatment Upcoming Encounters Date Type Department Care Team (Late st Contact Info) Description 10/04/2024 9:30 AM EDT Office Visit Adult Medicine [facility] [address] [place], [place] [phone] Gera Castillo MD [address] [place], [place] documented as of this encounter Visit Diagnoses Not on filedocumented in this encounter Additional Health Concerns Infection Onset Date Last Indicated Resolved Time Influenza 03/21/2024 03/21/2024 documented as of this encounter Care Teams Roustabout Pusher Relationship Specialty Start Date End Date Gera Castillo MD [address] [place] [address] PCP - General 05/08/22 documented as of this encounter
--- OUTSIDE RECORDS SUMMARY | 2024-04-14 10:13 | XMS_ITS | Encounter Summary ---
Author Organization [facility] Address [address] [place] [address] Care Team Providers Care Cp Bleacher Operator Name Role Phone Gera Castillo MD Primary Care Provider Reason for Referral * Consultation (Routine) - Authorized Specialty Diagnoses / Procedures Referred By Contanne t Referred To Contact Audiology Diagnoses Bilateral hearing loss, unspecified hearing loss type Gera Castillo MD [address] [place] [address] Phone: tel: fax: [address] Phone: tel: Referral ID Status Reason Start Date Expiration Date Visits Requested Visits Authorized [id number] Authorized Specialty Services Required 04/06/2024 04/06/2025 1 1 Reason for Visit * Reason Comments Follow-up Ear issues/ unable t o hear Encounter Details Date Type Department Care Team (Late st Contact Info) Description 04/06/2024 9:45 AM EST Office Visit Adult Medicine [address] [phone] Gera Castillo MD [address] [place] [address] Other hyperlipidemia (Primary Dx); Essential hypertension; Relative polycythemia; Postprandial epigastric pain; Bilateral hearing loss, unspecified hearing loss type Social History Tobacco Use Types Packs/Day [...] care for your loved ones. For example, early childhood lead teacher or elderly care for an older adult? [...] 21 04/06/2024 9:32 AM EST Oxygen Saturation - - Inhaled Oxygen Concentration - - Weight 82.5 kg (181 lb 12.8 oz) 04/06/2024 9:32 AM EST Height 172.7 cm (5' 8 ) 04/06/2024 9:32 AM EST Body Mass Index 27.64 04/06/2024 9:32 AM EST documented in this encounter Progress Notes * Gera Castillo MD - 04/06/2024 9:45 AM EST SUBJECTIVE: Reji Ellington is a 63 y.o. male who presents today for Chief Complaint Patient presents with Follow-up Ear issues/ unable to hear HPI: Patient presenting for evaluation. He states he has been having difficulty hearing from both ears. 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 No recent viral respiratory infections. Complains of postprandial epigastric pain for many months. Does have occasional left lower quadrantabdominal pain as well. History of prior diverticulitis. Current Meds: Current Outpatient Medications: lisinopriL (PRINIVIL,ZESTRIL) 5 mg tablet, TAKE 1 TABLET BY MOUTH EVERY DAY, Disp: 90 tablet, Rfl: 1 meclizine (ANTIVERT) 25 mg tablet, Take 1 Tablet by mouth 3 times daily as needed (vertigo)., Disp:, Rfl: Allergies: No Known Allergies Immunizations: Immunization History Administered Date(s) Administered Moderna SARS-CoV-2 COVID-19, mRNA, LNP-S, preservative free 05/30/2020, 06/27/2020 Pfizer SARS-CoV-2 COVID-19, mRNA, LNP-S, preservative free 02/15/2021 Td Tetanus diptheria (Tdvax) 7yo and older 02/09/2022 Tdap Tetanus diptheria acellular pertussis (Boostrix; Adacel) 7yo and older 01/28/2009 Active Problems: Patient Active Problem List Diagnosis Essential hypertension External hemorrhoid Hyperlipidemia Diverticulitis of colon without hemorrhage Bilateral inguinal hernia without obstruction or gangrene Elevated hematocrit Multiple acquired cysts of kidney Epididymal cyst Chronic back pain Herpes genitalia Osteoarthritis of right shoulder Glaucoma suspect of both eyes Nuclear sclerosis of both eyes Non-seasonal allergic rhinitis Relative polycythemia Lumbar spondylosis HISTORY: Past Medical History: Diagnosis Date Diverticulitis of colon without hemorrhage 10/18/2013 DX:Diverticulitis of colon without hemorrhage; COMMENT: Incidental finding at colonoscopy 10/18/2013. Diverticulosis of colon (without mention of hemorrhage) 10/18/2013 DX:Diverticulosis of colon (without mention of hemorrhage); COMMENT: Incidental finding at colonoscopy 10/18/2013. Essential hypertension 01/31/2015 DX:Essential hypertension Herpes genitalia 08/26/2011 DX:Herpes genitalia Hyperlipidemia 07/24/2014 DX:Hyperlipidemia Onychomycosis DX:Onychomycosis Past Surgical History: Procedure Laterality Date COLONOSCOPY 2013 PROCEDURE: [place] COLONOSCOPY FLX DX W/COLLJ SPEC WHEN PFRMD; COMMENT: Minimal diverticulosis HERNIA REPAIR 06/16/2017 PROCEDURE: LAPAROSCOPY, INGUINAL HERNIA REPAIR; COMMENT: bilateral with mesh HERNIA REPAIR 06/16/2017 PROCEDURE: REPAIR UMBILICAL HERNIA VASECTOMY 1991 PROCEDURE: HISTORICAL VASECTOMY Family History Problem Relation Name Age of Onset Other (Other: healthy) Mother after fall 91 Coronary artery disease Father Cataracts Father Other (Other: arrythmia) Father Hypertension Brother Other (Other: diverticulitis) Son Blindness Neg Hx Glaucoma Neg Hx Macular degeneration Neg Hx Strabismus Neg Hx Social History Socioeconomic History Marital status: Spouse name: Not on file Number of children: Not on file Years of education: Not on file Highest education level: Not on file Occupational History Not on file Tobacco Use Smoking status: Never Smokeless tobacco: Never Substance and Sexual Activity Alcohol use: Not Currently Drug use: No Sexual activity: Not on file Comment: - 4 kids, 10 grandkids Other Topics Concern Not on file Social History Narrative Not on file ROS: GENERAL: Negative for malaise, significant weight loss and fever RESPIRATORY: No cough, wheezing or shortness of breath CARDIOVASCULAR: Negative for chest pain, leg swelling and palpitations GI: Negative for abdominal discomfort, changes in bowel habits, blood in stool or black stools VITAL SIGNS Vitals: 04/06/24 0932 BP: 122/68 Pulse: 89 Resp: 21 Temp: 36.3 ??C (97.4 ??F) TempSrc: Temporal Weight: 82.5 kg (181 lb 12.8 oz) Height: 1.727 m (68 ) Body mass index is 27.64 kg/m??. Body surface area is 1.96 meters squared. PHYSICAL EXAM: Blood pressure 122/68, pulse 89, temperature 36.3 ??C (97.4 ??F), temperature source Temporal, resp. rate 21, height 1.727 m (68 ), weight 82.5 kg (181 lb 12.8 oz). Body mass index is 27.64 kg/m??. Plan is deferred until next visit APPEARANCE: Alert and in no acute distress EYES: PERRLA, conjunctiva and sclera normal EARS: External ears normal. Canals clear. TMs normal. NOSE/SINUS: Nares normal. Septum midline. Mucosa normal. No drainage or sinus tenderness MOUTH/THROAT: no erythema, lesions, or exudates NECK: Neck supple, no adenopathy, thyroid symmetric and of normal size HEART: RRR with normal S1 and S2, no murmurs, no gallops, no JVD appreciated CHEST: non-tender LUNG: clear to auscultation bilaterally ASSESSMENT/PLAN: Reji was seen today for follow-up. Diagnoses and all orders for this visit: Other hyperlipidemia (Primary) - Lipid panel with reflex to direct LDL; Future Essential hypertension - CBC and differential; Future - Basic metabolic panel; Future Relative polycythemia Postprandial epigastric pain - Helicobacter pylori breath test; Future Bilateral hearing loss, unspecified hearing loss type - Ambulatory referral to Audiology; Future Plan Continue lisinopril for hypertension. Check CBC, BMP. He also history of early polycythemia. JAK2 mutation testing was negative previously. CBC have been normal over the past 1 to 2 years. He was on aspirin but he stopped taking that. Will check CBC. Has seen hematology previously as well. Patient with postprandial epigastric pain. Check H. pylori. He says pantoprazole did help to some degree previously. Has not taken for the past 2 weeks. If negative, may have GI evaluation. Patient stopped taking statin last year. Will recheck lipid profile. Will obtain hearing evaluation/tympanometry. Referral placed. Most likely age- related sensorineuralhearing loss. I have applied the code G2211 to this patient???s visit as the primary care provider dealing with (above mentioned conditions) leading to the extensive work up, and management associated with the medical care of this patient. This patient???s serious conditions and complex medical conditions also required several consultants needing management and coordination through my office. I have reviewed all information as it pertains to the management of this patient for final approval. Follow up in about 6 months (around 10/04/2024) for Next scheduled follow-up. Orders Placed This Encounter Procedures CBC and differential Lipid panel with reflex to direct LDL Helicobacter pylori breath test Basic metabolic panel Ambulatory referral to Audiology Recent Results (from the past 672 hour(s)) POC Influenza A/B manually resulted Collection Time: 03/21/24 1:50 PM Result Value Ref Range Rapid Influenza A AGN POC Positive (A) Negative Rapid Influenza B AGN POC Negative Negative Internal Control Pass Yes Yes Poc Rapid [id number], MOLECULAR Collection Time: 03/21/24 1:58 PM Result Value Ref Range COVID-19/SARS-COV-2 Rapid POC Negative Negative Internal Control Pass Yes Yes Gera Castillo MD documented in this encounter Plan of Treatment Upcoming Encounters Date Type Department Care Team (Late st Contact Info) Description 10/04/2024 9:30 AM EDT Office Visit Adult Medicine [facility] [address] [place] [address] Gera Castillo MD [address], [place] [phone] (work) Scheduled Referrals Name Type Priority Associated Diagnoses Order Schedule Ambulatory referral to Audiology Outpatient Referral Routine Bilateral hearing loss, unspecified hearing loss type 1 Occurrences starting 04/06/2024 until 04/06/2025 documented as of this encounter Results * Basic metabolic panel (04/07/2024 9:28 AM EST) Sodium 138 133 - 145 mmol/L LAB CHEMISTRY METHOD 04/07/2024 12:18 PM [facility] Potassium 4.1 3.5 - 5.5 mmol/L LAB CHEMISTRY METHOD 04/07/2024 12:18 PM [facility] Chloride 106 96 - 110 mmol/L LAB CHEMISTRY METHOD 04/07/2024 12:18 PM [facility] CO2 28 21 - 32 mmol/L LAB CHEMISTRY METHOD 04/07/2024 12:18 PM [facility] Anion Gap 4 3 - 11 LAB CHEMISTRY METHOD 04/07/2024 12:18 PM [facility] Glucose 99 70 - 100 mg/dL LAB CHEMISTRY METHOD 04/07/2024 12:18 PM [facility] BUN 16 5 - 25 mg/dL LAB CHEMISTRY METHOD 04/07/2024 12:18 PM [facility] Creatinine 0.95 0.70 - 1.30 mg/dL LAB CHEMISTRY METHOD 04/07/2024 12:18 PM [facility] eGFR 91 >=60 mL/min/1. 73m2 LAB CHEMISTRY METHOD 04/07/2024 12:18 PM [facility] Comment:Calculation based on the??Chronic Kidney Disease Epidemiology Collaboration (CKD-EPI) equation refit??without adjustment for race. BUN/Creatinine Ratio 16.8 LAB CHEMISTRY METHOD 04/07/2024 12:18 PM [facility] Calcium 9.4 8.5 - 10.5 mg/dL LAB CHEMISTRY METHOD 04/07/2024 12:18 PM [facility] Blood Venous blood specimen / Unknown Venipuncture / Unknown 04/07/2024 9:28 AM EST 04/07/2024 9:28 AM EST Gera Castillo MD LAB BLOOD ORDERABLES F inal Result Performing Organization Address [facility]/ZIP Co de Phone Number [facility] [address] [place] [address], [place] [phone] * (ABNORMAL) Helicobacter pylori breath test (04/07/2024 9:28 AM EST) H Pylori Breath Test Positive( A) Negative LAB CHEMISTRY METHOD 04/07/2024 12:26 PM [facility] Breath Oral cavity structure / Unknown Non-blood Collection / Unknown 04/07/2024 9:28 AM EST 04/07/2024 9:28 AM EST Gera Castillo MD LAB BODY FLUIDS AND ST OOLS ORDERABLES Final Result Performing Organization Address [facility]/ZIP Co de Phone Number [facility] [address] [place] [address], [place] [phone] * (ABNORMAL) Lipid panel with reflex to direct LDL (04/07/2024 9:28 AM EST) Cholesterol 163 0 - 200 mg/dL LAB CHEMISTRY METHOD 04/07/2024 12:20 PM [facility] Triglycerides 89 0 - 150 mg/dL LAB CHEMISTRY METHOD 04/07/2024 12:20 PM [facility] HDL 34(L) >=40 mg/dL LAB CHEMISTRY METHOD 04/07/2024 12:20 PM [facility] LDL Calculated 111(H) 0 - 100 mg/dL LAB CHEMISTRY METHOD 04/07/2024 12:20 PM [facility] VLDL Cholesterol [employer] 17.8 mg/dL LAB CHEMISTRY METHOD 04/07/2024 12:20 PM EST [facility] Non HDL Chol. (LDL+VLDL) 129 <145 mg/dL LAB CHEMISTRY METHOD 04/07/2024 12:20 PM EST [facility] Chol/HDL Ratio 4.8(H) 0.0 - 4.4 LAB CHEMISTRY METHOD 04/07/2024 12:20 PM EST [facility] Blood Venous blood specimen / Unknown Venipuncture / Unknown 04/07/2024 9:28 AM EST 04/07/2024 9:28 AM EST us Gera Castillo MD LAB BLOOD ORDERABLES F inal Result [facility] [address] [place] [address], [place] [phone] documented in this encounter Visit Diagnoses Diagnosis Other hyperlipidemia- Primary Essential hypertension Unspecified essential hypertension Relative polycythemia Postprandial epigastric pain Bilateral hearing loss, unspecified hearing loss type documented in this encounter Discontinued Medications Medication Sig Discontinue Reason Start Date End Da te cyclobenzaprine (FLEXERIL) 10 mg tablet Take 1 tablet (10 mg total) by mouth 3 (three) times a day if needed for muscle spasms. 01/28/2024 04/06/2024 ibuprofen (ADVIL,MOTRIN) 800 mg tablet Take 1 tablet (800 mg total) by mouth 3 (three) times a day if needed for mild pain (pain). 01/28/2024 04/06/2024 pantoprazole (PROTONIX) 40 mg EC tablet Take 1 tablet (40 mg total) by mouth 1 (one) time each day before breakfast. Do not crush, chew, or split. 02/10/2024 04/06/2024 sucralfate (Carafate) 1 gram tablet Take 1 tablet (1 g total) by mouth 4 (four) times a day. 02/10/2024 04/06/2024 documented as of this encounter Additional Health Concerns Infection Onset Date Last Indicated Resolved Time Influenza 03/21/2024 03/21/2024 documented as of this encounter Care Teams Cp Bleacher Operator Relationship Specialty Start Date End Date Gera Castillo MD [address] [place] [address] PCP - General 05/08/22 documented as of this encounter
--- OUTSIDE RECORDS SUMMARY | 2024-04-14 10:13 | XMS_ITS | Encounter Summary ---
Author Organization [facility] Address [address] [place] [address] Care Team Providers Care Technical Communication Teacher Name Role Phone Gera Castillo MD Primary Care Provider Reason for Visit * Reason Onset Date Comments triage 03/21/2024 Body aches/heada ches Encounter Details Date Type Department Care Team ([facility] st Contact Info) Description 03/21/2024 Nurse Triage Adult Medicine [address] [phone] [place], [place] triage (Body aches/headaches) Social History Tobacco Use Types Packs/Day Years [...] for your loved ones. For example, child protective services specialist or elderly care for an older adult? [...] Progress Notes * Bianca Gonzalez RN - 03/21/2024 9:22 AM EST Spoke with the pt Sore throat that comes and goes, drinking lots of fluids PND is terrible and feels like he is not able to move it out of the sinus' Cough is slowly going to the chest Speaking in complete sentences. Started on Wednesday night Scheduled eval for 03/21 at 1:15 Reason for Disposition [1] Also has allergy symptoms (e.g., itchy eyes, clear nasal discharge, postnasal drip) AND [2] they are acting up Answer Assessment - Initial Assessment Questions 1. ONSET: When did the cough begin? Wednesday night 2. SEVERITY: How bad is the cough today? increasing 3. SPUTUM: Describe the color of your sputum (e.g., none, dry cough; clear, white, yellow, green) Not able to cough up secretions 4. HEMOPTYSIS: Are you coughing up any blood? If Yes, ask: How much? (e.g., flecks, streaks, tablespoons, etc.) none 5. DIFFICULTY BREATHING: Are you having difficulty breathing? If Yes, ask: How bad is it? (e.g., mild, moderate, severe) - MILD: No SOB at rest, mild SOB with walking, speaks normally in sentences, can lie down, no retractions, pulse < 100. - MODERATE: SOB at rest, SOB with minimal exertion and prefers to sit, cannot lie down flat, speaksin phrases, mild retractions, audible wheezing, pulse 100 to 120. - SEVERE: Very SOB at rest, speaks in single words, struggling to breathe, sitting hunched forward,retractions, pulse > 120 mild 6. FEVER: Do you have a fever? If Yes, ask: What is your temperature, how was it measured, and when did it start? unknown 7. CARDIAC HISTORY: Do you have any history of heart disease? (e.g., heart attack, congestive heart failure) no 8. LUNG HISTORY: Do you have any history of lung disease? (e.g., pulmonary embolus, asthma, emphysema) no 9. PE RISK FACTORS: Do you have a history of blood clots? (or: recent major surgery, recent prolonged travel, bedridden) no 10. OTHER SYMPTOMS: Do you have any other symptoms? (e.g., runny nose, wheezing, chest pain) Runny nose, PND, sinus congestion that is moving into the chest 11. : Is there any chance you are ? When was your last menstrual period? no 12. TRAVEL: Have you traveled out of the country in the last month? (e.g., travel history, exposures) no Protocols used: Cough - Acute [id number] * Bea Lebron MA - 03/21/2024 9:10 AM EST Patient call requires triage: Symptoms patient is presenting: body aches, headaches, ? fever How long has patient had these symptoms?: 4 days For ALL patients calling to schedule any appointment (routine, sick visit, follow up, consult, etc.) in the outpatient setting please ask the following questions: Do you have fever of higher than 101, sore throat with difficulty swallowing or severe shortness ofbreath? Yes, sore throat, fever 101.5 If YES to any of these above symptoms, send a message to triage and do not book. Red dot. If no, an audio or video visit should be booked. Have you had close contact with someone with Coronavirus in the last 14 days? no Have you traveled abroad? no Have you traveled recently to another state outside of [place], [place], [place], [place], [place], [place], [place]? no o If yes, did you quarantine [...] of accident/Injury: No If yes, gather 3rd libertarian insurance information Third Republican Information: not applicable PCP: Gera Castillo MD Payor: [facility] / Plan: [facility] PPO / Product Type: *No Product type* / documented in this encounter Plan of Treatment Upcoming Encounters Date Type Department Care Team (Late st Contact Info) Description 10/04/2024 9:30 AM EDT Office Visit Adult Medicine [facility] [address], [place] [phone] Gera Castillo MD [address], [place] documented as of this encounter Visit Diagnoses Not on filedocumented in this encounter Care Teams Technical Communication Teacher Relationship Specialty Start Date End Date Gera Castillo MD [address] [place] [address] PCP - General 05/08/22 documented as of this encounter
--- OUTSIDE RECORDS SUMMARY | 2024-04-14 10:13 | XMS_ITS | Clinical Summary ---
Author Organization [facility] Address [address] [place] [address] Care Team Providers Care Vp Marketing Name Role Phone Elsa Cifuentes MD Primary Care Provider [phone] Allergies No known active allergies Medications No known medications Active Problems No known active problems Social History Tobacco Use Types Packs/Day Years Used Date Smoking Tobacco: Never Smokeless Tobacco: Never Alcohol Use Standard Drinks/Week Comments Not Currently 0 (1 standard drink = 0.6 oz pur e alcohol) Sex and Gender Information Value Date Recorded Sex Assigned at Not on file Gender Identity Not on file Sexual Orientation Not on file Job Start Date Occupation Industry Not on file Not on file Not on file Last Filed Vital Signs Vital Sign Reading Time Taken Comments Blood Pressure 151/84 04/07/2022 11:19 AM EST Pulse 92 04/07/2022 11:19 AM EST Temperature 36.7 ??C (98 ??F) 04/07/2022 11:19 AM EST Respiratory Rate - - Oxygen Saturation 99% 04/07/2022 11:19 AM EST Inhaled Oxygen Concentration - - Weight 82.1 kg (181 lb) 04/07/2022 11:19 AM EST Height 172.7 cm (5' 8 ) 04/07/2022 11:19 AM EST Body Mass Index 27.52 04/07/2022 11:19 AM EST Plan of Treatment Health Maintenance Due Date Last Done Comments Hepatitis C Screening 1962 Depression Screening 1974 Preventative Health Evaluation 1980 Colon Cancer Screening (Colonoscopy) 05/21/2007 Shingrix-Zoster Vaccine (1 o f 2) 2012 COVID-19 Vaccine (2023-2 5 season) 2023 02/15/2021 Influenza Vaccine (#1) 2023 DTap / Tdap / Td (3 - Td or Tdap) 02/10/2032 02/09/2022, 01/28/2009 RSV Adult > 60+ Yrs or (1 - 1-dose 75+ series) 2037 Hepatitis B Vaccines Aged Out No long er eligible based on patient's age to complete this topic Pneumococcal Vaccine Aged Out No long er eligible based on patient's age to complete this topic RSV Ped < 20 months Aged Out No longe r eligible based on patient's age to complete this topic Care Teams Vp Marketing Relationship Specialty Start Date End Date Elsa Cifuentes MD [address] [facility] [address] [place] [phone] PCP - General Internal Medicine 04/07/22
--- OUTSIDE RECORDS SUMMARY | 2024-04-14 10:14 | XMS_ITS | Encounter Summary ---
Author Organization [facility] Address [address] [place] [address] Care Team Providers Care Analyst Microbiology Lab Name Role Phone Gera Castillo MD Primary Care Provider Reason for Referral * Consultation (Routine) - Pending Review Specialty Diagnoses / Procedures Referred By Contact Referred To Contact Physical Medicine and Rehabilitation Diagnoses Lumbar spondylosis Acute on chronic low back pain Gera Castillo MD [address] [place] [address] Phone: tel: fax: Referral ID Status Reason Start Date Expiration Date Visits Requested Visits Authorized [id number] Pending Review Specialty Services Required 4 01/27/2025 1 1 * Consultation (Routine) - Authorized Specialty Diagnoses / Procedures Referred By Contac t Referred To Contact Urology Diagnoses Multiple acquired cysts of kidney Gera Castillo MD [address] [place] [address] Phone: tel: fax: [facility] [address] [address] Phone: tel: fax: Referral ID Status Reason Start Date Expiration Date Visits Requested Visits Authorized [id number] Authorized Specialty Services Required 4 01/27/2025 1 1 Reason for Visit * Reason Comments Back Pain Encounter Details Date Type Department Care Team (Late st Contact Info) Description 01/28/2024 2:30 PM EST Office Visit Adult Medicine [facility] [address] [place] [address] Gera Castillo MD [address] [place] [address] Essential hypertension (Primary Dx); Other hyperlipidemia; Screening for prostate cancer; Relative polycythemia; Non-seasonal allergic rhinitis due to other allergic trigger; Multiple acquired cysts of kidney; Lumbar spondylosis; Acute on chronic low back pain Social History Tobacco Use Types Packs/Day Years [...] for your loved ones. For example, child and adolescent psychologist or elderly care for an older adult? [...] Sign Reading Time Taken Comments Blood Pressure 120/78 01/28/2024 2:19 PM EST Pulse 94 01/28/2024 2:19 PM EST Temperature 36.4 ??C (97.5 ??F) 01/28/2024 2:19 PM ES T Respiratory Rate 16 01/28/2024 2:19 PM EST Oxygen Saturation 99% 01/28/2024 2:19 PM EST Inhaled Oxygen Concentration - - Weight 81.6 kg (180 lb) 01/28/2024 2:19 PM EST Height 172.7 cm (5' 8 ) 01/28/2024 2:19 PM EST Body Mass Index 27.37 01/28/2024 2:19 PM EST documented in this encounter Ordered Prescriptions Prescription Sig Dispense Quantity Refills Last Filled Start Date End Date cyclobenzaprine (FLEXERIL) 10 mg tablet Take 1 tablet (10 mg total) by mouth 3 (three) times a day if needed for muscle spasms. 270 tablet 01/28/2024 04/06/2024 ibuprofen (ADVIL,MOTRIN) 800 mg tablet Take 1 tablet (800 mg total) by mouth 3 (three) times a day if needed for mild pain (pain). 270 tablet 01/28/2024 04/06/2024 predniSONE (DELTASONE) 20 mg tablet Take 1 tablet (20 mg total) by mouth 2 (two) times a day for 5 days. 10 each 01/28/2024 02/02/2024 documented in this encounter Progress Notes * Gera Castillo MD - 01/28/2024 2:30 PM EST SUBJECTIVE: Reji Ellington is a 63 y.o. male who presents today for Chief Complaint Patient presents with Back Pain HPI: 63-year-old male presenting for worsening lower back pain as well as routine follow-up. He says forthe past 3 months he has had worsening low back pain. He does not radiate down the legs. No nausea or vomiting. No urinary complaints. No bowel complaints. No trauma or falls. 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 Current Meds: Current Outpatient Medications: cetirizine (ZyrTEC) 10 mg tablet, Take 1 tablet (10 mg total) by mouth at bedtime., Disp: , Rfl: lisinopriL (PRINIVIL,ZESTRIL) 5 mg tablet, Take 1 tablet (5 mg total) by mouth 1 (one) time each day., Disp: , Rfl: meclizine (ANTIVERT) 25 mg tablet, Take 1 Tablet by mouth 3 times daily as needed (vertigo)., Disp:, Rfl: atorvastatin (LIPITOR) 20 mg tablet, Take 1 tablet (20 mg total) by mouth 1 (one) time each day. (Patient not taking: Reported on 01/28/2024), Disp: , Rfl: cyclobenzaprine (FLEXERIL) 10 mg tablet, Take 1 tablet (10 mg total) by mouth 3 (three) times a dayif needed for muscle spasms., Disp: 270 tablet, Rfl: 0 ibuprofen (ADVIL,MOTRIN) 800 mg tablet, Take 1 tablet (800 mg total) by mouth 3 (three) times a dayif needed for mild pain (pain)., Disp: 270 tablet, Rfl: 0 predniSONE (DELTASONE) 20 mg tablet, Take 1 tablet (20 mg total) by mouth 2 (two) times a day for 5days., Disp: 10 each, Rfl: 0 Allergies: No Known Allergies Immunizations: Immunization History [...] History: Procedure Laterality Date COLONOSCOPY 2013 PROCEDURE: MO COLONOSCOPY FLX DX W/COLLJ SPEC WHEN PFRMD; [...] stool or black stools VITAL SIGNS Vitals: 01/28/24 1419 BP: 120/78 BP Location: Right arm Patient Position: Sitting BP Cuff Size: Adult Pulse: 94 Resp: 16 Temp: 36.4 ??C (97.5 ??F) TempSrc: Temporal SpO2: 99% Weight: 81.6 kg (180 lb) Height: 1.727 m (68 ) Body mass index is 27.37 kg/m??. Body surface area is 1.95 meters squared. PHYSICAL EXAM: Blood pressure 120/78, pulse 94, temperature 36.4 ??C (97.5 ??F), temperature source Temporal, resp. rate 16, height 1.727 m (68 ), weight 81.6 kg (180 lb), SpO2 99%. Body mass index is 27.37 kg/m??.Plan is deferred until next visit APPEARANCE: Alert and in no acute distress HEART: RRR with normal S1 and S2, no murmurs, no gallops, no JVD appreciated CHEST: non-tender LUNG: clear to auscultation bilaterally ABDOMEN: Bowel sounds normoactive, no bruits and soft, non-tender, without organomegaly or palpablemasses BACK: no pain to palpation, negative SLR test in supine position, slight decreased extension, and slight decreased flexion EXTREMITIES: Extremities warm and well perfused without clubbing, cyanosis, or edema NEURO: Awake, alert and oriented x 3, Cranial nerves II-XII grossly intact, and reflexes symmetrical SKIN: Skin color, texture, turgor normal. No rashes or lesions. PSYCH: Stable mood. Denies SI/HI No results found for this or any previous visit (from the past 4464 hour(s)). ASSESSMENT/PLAN: Reji was seen today for back pain. Diagnoses and all orders for this visit: Essential hypertension (Primary) - Comprehensive metabolic panel; Future Other hyperlipidemia - CBC and differential; Future - Lipid panel with reflex to direct LDL; Future Screening for prostate cancer - Prostate specific antigen screen; Future Elevated hematocrit Relative polycythemia - CBC and differential; Future Non-seasonal allergic rhinitis due to other allergic trigger Multiple acquired cysts of kidney - Ambulatory referral to Urology; Future Lumbar spondylosis - XR Lumbar Spine 4+ Views; Future - Ambulatory referral to Physical Medicine Rehab; Future Acute on chronic low back pain - XR Lumbar Spine 4+ Views; Future - Ambulatory referral to Physical Medicine Rehab; Future Other orders - predniSONE (DELTASONE) 20 mg tablet; Take 1 tablet (20 mg total) by mouth 2 (two) times a day for5 days. - ibuprofen (ADVIL,MOTRIN) 800 mg tablet; Take 1 tablet (800 mg total) by mouth 3 (three) times a day if needed for mild pain (pain). - cyclobenzaprine (FLEXERIL) 10 mg tablet; Take 1 tablet (10 mg total) by mouth 3 (three) times a day if needed for muscle spasms. Plan Blood pressure appropriate. Continue lisinopril. Check CMP. Patient has hyperlipidemia. He was on atorvastatin 40 mg. He states he stopped taking a few months ago. He has been managing it with low-fat diet. Will recheck lipid profile. Check PSA as part of prostate cancer screening. Patient says patient also has history of relative polycythemia negative , JAK2 mutation test is negative . Has seen hematology previously. He was previously on aspirin. Fortunately his CBC in 2022 was normal and he stopped taking aspirin after that. Hematocrit normalized at that time. Will recheck CBC. If he has erythrocytosis again, we will restart aspirin and advise him to donate blood. Continue cetirizine for allergic rhinitis. Patient also has multiple kidney cysts. Ultrasound in April 2023 showed at least 2 cysts right kidney which are roughly 3 cm in size. One of them was updated. He was referred to urology but he says he could not make an appoint with them due to his busy life schedule. I have referred him again to follow-up with urology for this. Patient with acute on chronic worsening low back pain. Will add physiatry evaluation. Obtain x-ray of the lumbar spine. Will treat with ibuprofen, Flexeril as well as prednisone. MRI lumbar spine from 2016 reviewed. Bony and discogenic degenerative changes at L4-5 and L5-S1 noted an MRI of the lumbar spine in 2016. Will follow-up with the patient in 3 months. Work excuse letter given to the patient. I have applied the code G2211 to [...] for final approval. Follow up in about 3 months (around 04/28/2024) for Next scheduled follow-up. Orders Placed This Encounter Procedures XR Lumbar Spine 4+ Views Prostate specific antigen screen Comprehensive metabolic panel CBC and differential Lipid panel with reflex to direct LDL Ambulatory referral to Urology Ambulatory referral to Physical Medicine Rehab No results found for this or any previous visit (from the past 672 hour(s)). Gera Castillo MD documented in this encounter Plan of Treatment Upcoming Encounters Date Type Department Care Team (Late st Contact Info) Description 10/04/2024 9:30 AM EDT Office Visit Adult Medicine [facility] [address] [place] [phone] Gera Castillo MD [address] [place] [address] Scheduled Referrals Name Type Priority Associated Diagnoses Order Schedule Ambulatory referral to Urology Outpatient Referral Routine Multiple acquired cysts of kidney 1 Occurrences starting 01/28/2024 until 01/27/2025 Ambulatory referral to Physical Medicine Rehab Outpatient Referral Routine Lumbar spondylosis Acute on chronic low back pain 1 Occurrences starting 01/28/2024 until 01/27/2025 documented as of this encounter Results * (ABNORMAL) Lipid panel with reflex to direct LDL (01/31/2024 8:56 AM EST) Cholesterol 140 0 - 200 mg/dL LAB CHEMISTRY METHOD 01/31/2024 1:46 PM EST [facility] Triglycerides 84 0 - 150 mg/dL LAB CHEMISTRY METHOD 01/31/2024 1:46 PM [facility] HDL 34(L) >=40 mg/dL LAB CHEMISTRY METHOD 01/31/2024 1:46 PM [facility] LDL Calculated 89 0 - 100 mg/dL LAB CHEMISTRY METHOD 01/31/2024 1:46 PM EST [facility] VLDL Cholesterol [employer] 16.8 mg/dL LAB CHEMISTRY METHOD 01/31/2024 1:46 PM EST [facility] Non HDL Chol. (LDL+VLDL) 106 <145 mg/dL LAB CHEMISTRY METHOD 01/31/2024 1:46 PM EST [facility] Chol/HDL Ratio 4.1 0.0 - 4.4 LAB CHEMISTRY METHOD 01/31/2024 1:46 PM EST [facility] Blood Venous blood specimen / Unknown Venipuncture / Unknown 01/31/2024 8:56 AM EST 01/31/2024 8:56 AM EST us Gera Castillo MD LAB BLOOD ORDERABLES F inal Result [facility] [address] [place] [address], [place] [phone] * Comprehensive metabolic panel (01/31/2024 8:56 AM EST) [facility] Signature Sodium 141 133 - 145 mmol/L LAB CHEMISTRY METHOD 01/31/2024 1:46 PM [facility] Potassium 4.2 3.5 - 5.5 mmol/L LAB CHEMISTRY METHOD 01/31/2024 1:46 PM [facility] Chloride 107 96 - 110 mmol/L LAB CHEMISTRY METHOD 01/31/2024 1:46 PM [facility] CO2 28 21 - 32 mmol/L LAB CHEMISTRY METHOD 01/31/2024 1:46 PM [facility] Anion Gap 6 3 - 11 LAB CHEMISTRY METHOD 01/31/2024 1:46 PM [facility] Glucose 96 70 - 100 mg/dL LAB CHEMISTRY METHOD 01/31/2024 1:46 PM [facility] BUN 18 5 - 25 mg/dL LAB CHEMISTRY METHOD 01/31/2024 1:46 PM [facility] Creatinine 1.01 0.70 - 1.30 mg/dL LAB CHEMISTRY METHOD 01/31/2024 1:46 PM [facility] eGFR 85 >=60 mL/min/1. 73m2 LAB CHEMISTRY METHOD 01/31/2024 1:46 PM [facility] Comment:Calculation based on the??Chronic Kidney Disease Epidemiology Collaboration (CKD-EPI) equation refit??without adjustment for race. BUN/Creatinine Ratio 17.8 LAB CHEMISTRY METHOD 01/31/2024 1:46 PM [facility] Calcium 9.5 8.5 - 10.5 mg/dL LAB CHEMISTRY METHOD 01/31/2024 1:46 PM [facility] AST (SGOT) 26 10 - 42 unit/L LAB CHEMISTRY METHOD 01/31/2024 1:46 PM [facility] ALT (SGPT) 41 10 - 60 unit/L LAB CHEMISTRY METHOD 01/31/2024 1:46 PM [facility] Alkaline Phosphatase 76 42 - 121 unit/L LAB CHEMISTRY METHOD 01/31/2024 1:46 PM EST [facility] Total Protein 7.0 6.0 - 8.0 g/dL LAB CHEMISTRY METHOD 01/31/2024 1:46 PM EST [facility] Albumin 4.3 3.2 - 5.0 g/dL LAB CHEMISTRY METHOD 01/31/2024 1:46 PM EST [facility] Total Bilirubin 0.5 0.0 - 1.4 mg/dL LAB CHEMISTRY METHOD 01/31/2024 1:46 PM EST [facility] Blood Venous blood specimen / Unknown Venipuncture / Unknown 01/31/2024 8:56 AM EST 01/31/2024 8:56 AM EST Gera Castillo MD LAB BLOOD ORDERABLES F inal Result Performing Organization Address [facility] de Phone Number [facility] [address] [place] [address], [place] [phone] * Prostate specific antigen screen (01/31/2024 8:56 AM EST) PSA 1.75 0.00 - 4.00 ng/mL LAB CHEMISTRY METHOD 01/31/2024 1:47 PM EST [facility] Blood Venous blood specimen / Unknown Venipuncture / Unknown 01/31/2024 8:56 AM EST 01/31/2024 8:56 AM EST Narrative [facility] - 01/31/2024 1:47 PM EST The Siemens Advia Centaur Chemiluminescent Immunoassay is used. Results obtained with different assay methods or kits cannot be used interchangeably. Results cannot be interpreted as absolute evidence of the presence or absence of malignant disease. us Gera Castillo MD LAB BLOOD ORDERABLES F inal Result Performing Organization Address City/[facility]/ZIP Co de Phone Number [facility] [address] [place] [address], [place] [phone] * XR Lumbar Spine 4+ Views (01/28/2024 [...] Signed Date: 01/28/2024 16:37 ET Workstation ID: [id number] Transcribed By: Self Edit Transcribed Date: 01/28/2024 [...] Signed Date: 01/28/2024 16:37 ET Workstation ID: [id number] Transcribed By: Self Edit Transcribed Date: 01/28/2024 16:35 ET us Gera Castillo MD IMG XR PROCEDURES Faiza l Result documented in this encounter Visit Diagnoses Diagnosis Essential hypertension- Primary Unspecified essential hypertension Other hyperlipidemia Screening for prostate cancer Special screening for malignant neoplasm of prostate Relative polycythemia Non-seasonal allergic rhinitis due to other allergic trigger Multiple acquired cysts of kidney Lumbar spondylosis Lumbosacral spondylosis without myelopathy Acute on chronic low back pain Lumbar spondylosis Lumbosacral spondylosis without myelopathy Acute on chronic low back pain documented in this encounter Discontinued Medications Medication Sig Discontinue Reason Start Date End Da te tadalafiL (CIALIS) 5 mg tablet Take 1 tablet (5 mg total) by mouth 1 (one) time each day. 12/15/2022 01/28/2024 magnesium 250 mg tablet Take by mouth. 01/28/20 24 documented as of this encounter Additional Health Concerns Infection Onset Date Last Indicated Resolved Time Influenza 03/21/2024 03/21/2024 documented as of this encounter Care Teams Analyst Microbiology Lab Relationship Specialty Start Date End Date Gera Castillo MD [address] [place] [address] PCP - General 05/08/22 documented as of this encounter
== END 2024-04-14 09:43 | disposition home or self-care (01) ==
LOC: HO.SH 09:42
PROVIDERS: Visit Provider Internal Medicine
DX: Z01.118 Encounter for examination of ears and hearing with other abnormal findings (principal); H90.3 Sensorineural hearing loss, bilateral
CPT/HCPCS: 92557; 92567